=== PATIENT | female | born 1995 | race Hispanic/Latino ===

== ENCOUNTER 2016-08-24 10:35 | Emergency (ER) | payer SELFPAY ==
[2016-08-24] MEDS ORDERED: Ibuprofen 200 MG TAB ONE (11:12)
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
== END 2016-08-24 12:40 | disposition home or self-care (01) ==
LOC: NAV ERS 10:35
DX: S93.401A Sprain of unspecified ligament of right ankle, initial encounter (principal); F17.210 Nicotine dependence, cigarettes, uncomplicated; X58.XXXA Exposure to other specified factors, initial encounter
CPT/HCPCS: 29515

== ENCOUNTER 2017-04-24 11:19 | Emergency (ER) | payer OTHER, SELFPAY ==
[2017-04-24] MEDS ORDERED: Ibuprofen 800 MG TAB ONE (11:52)
== END 2017-04-24 11:57 | disposition home or self-care (01) ==
LOC: NAV ERS 11:19
DX: J11.1 Influenza due to unidentified influenza virus with other respiratory manifestations (principal); Z87.891 Personal history of nicotine dependence
CPT/HCPCS: 99283

== ENCOUNTER 2019-06-14 22:19 | Emergency (ER) | payer BC, OTHER | END 2019-06-14 23:15 | disposition home or self-care (01) | LOC: NAV ERS 22:19 | DX: R53.81 Other malaise (principal); R51 Headache; Z87.891 Personal history of nicotine dependence | CPT/HCPCS: 87804; 99281 ==

== ENCOUNTER 2019-07-26 18:49 | Emergency (ER) | payer BC ==
[2019-07-26] MEDS ORDERED: Ketorolac Tromethamine 60 MG/2 ML VIAL ONE (19:16)
[2019-07-26] MEDS ORDERED: Ondansetron ODT 4 MG TAB ONE (19:16)
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
== END 2019-07-26 20:03 | disposition home or self-care (01) ==
LOC: NAV ERS 18:49
DX: S13.9XXA Sprain of joints and ligaments of unspecified parts of neck, initial encounter (principal); M62.830 Muscle spasm of back; Z87.891 Personal history of nicotine dependence; V43.62XA Car passenger injured in collision with other type car in traffic accident, initial encounter
CPT/HCPCS: 70450; 72125; 96372; J1885; L0120; Q0162

== ENCOUNTER 2019-09-05 08:45 | Emergency (ER) | payer BC ==
[2019-09-05] MEDS ORDERED: Ondansetron PF 4 MG/2 ML Vial ONE (09:23)
[2019-09-05] MEDS ORDERED: Ketorolac Tromethamine 30 MG/ML VIAL ONE (09:23)
[2019-09-05] MEDS ORDERED: Sodium Chloride 0.9% 1,000 ML ONE (09:23)
[2019-09-05 09:54] LABS: #Basophils 0.1 thou/uL (0.0-0.2); #Eosinphils 0.1 thou/uL (0.0-0.7); #Lymphocytes 1.9 thou/uL (1.20-3.40); #Monocytes 0.4 thou/uL (0.11-0.59); #Neutrophils 3.8 thou/uL (1.40-6.50); %Basophils 1.4 % (0.0-1.0); %Eosinophils 1.5 % (0.0-10.0); %Lymphocytes 29.6 % (21.0-51.0); %Monocytes 6.2 % (0.0-10.0); %Neutrophils 61.3 % (42.0-75.0); Mean Corpuscular HGB CONC 32.4 g/dL (32.0-36.0); Mean Corpuscular Hemoglobin 29.1 pg (27.0-31.0); Mean Platelet Volume 7.4 fL (7.4-10.4); Platelet Count 282 thou/uL (130-400); RBC Distribution Width 11.3 % (11.5-14.5); Red Blood Cell (RBC) Count 4.47 mill/uL (4.20-5.40); White Blood Cell (WBC) Count 6.3 thou/uL (4.8-10.8)
[2019-09-05 10:09] LABS: ALT (SGPT) 18 U/L (8-55); AST (SGOT) 15 U/L (5-34); Albumin 4.1 g/dL (3.5-5.0); Alkaline Phosphatase 66 U/L (40-110); Anion Gap 12 mmol/L (10-20); BUN (Urea Nitrogen) 8 mg/dL (7.0-18.7); Bilirubin, Total 0.3 mg/dL (0.2-1.2); Calc. Creatinine Clearance 0 mL/min (70-130); Calcium 8.9 mg/dL (7.8-10.44); Carbon Dioxide 25 mmol/L (22-29); Chloride 107 mmol/L (98-107); Estimated GFR-MDRD Greater than 90; Globulin 2.9 g/dL (2.4-3.5); Glucose 92 mg/dL (70-105); Potassium 3.8 mmol/L (3.5-5.1); Sodium 140 mmol/L (136-145)
== END 2019-09-05 10:33 | disposition home or self-care (01) ==
LOC: NAV ERS 08:45
DX: R19.7 Diarrhea, unspecified (principal); R11.2 Nausea with vomiting, unspecified; R10.9 Unspecified abdominal pain; R10.811 Right upper quadrant abdominal tenderness; Z87.891 Personal history of nicotine dependence
CPT/HCPCS: 80053; 85025; 96361; 96374; 96375; J1885; J2405; J7050

== ENCOUNTER 2020-08-24 19:08 | Emergency (ER) | payer BC, OTHER ==
[2020-08-24] MEDS ORDERED: Naproxen 500 MG TAB ONE (19:54)
== END 2020-08-24 20:27 | disposition home or self-care (01) ==
LOC: NAV ERS 19:08
DX: S43.402A Unspecified sprain of left shoulder joint, initial encounter (principal); S46.812A Strain of other muscles, fascia and tendons at shoulder and upper arm level, left arm, initial encounter; Z87.891 Personal history of nicotine dependence; X50.9XXA Other and unspecified overexertion or strenuous movements or postures, initial encounter

== ENCOUNTER 2025-03-10 20:21 | Emergency (ER) | payer BC ==
[2025-03-10] MEDS ORDERED: Lidocaine 1% (PF) 30 ML VIAL ONE (20:40)
[2025-03-10] MEDS ORDERED: Bacitracin 1 PK ONE (20:41)
== END 2025-03-10 21:15 | disposition home or self-care (01) ==
LOC: NAV ERS 20:21
DX: S61.214A Laceration without foreign body of right ring finger without damage to nail, initial encounter (principal); Z87.891 Personal history of nicotine dependence; W23.0XXA Caught, crushed, jammed, or pinched between moving objects, initial encounter
CPT/HCPCS: 12001; 99283; J2003